=== PATIENT | male | born 1990 | race Hispanic/Latino ===

== ENCOUNTER 2022-05-12 15:02 | Inpatient (IN) | payer OTHER, SELFPAY ==
[~2022-05-12 15:02] MED LIST: Iopamidol-370 76% 500 ML 1 ML ONE
[2022-05-12] MEDS ORDERED: Ketorolac Tromethamine 30 MG/ML VIAL ONE (18:56)
[2022-05-12] MEDS ORDERED: Clindamycin/D5W 900 mg/50 ml Premix Bag ONE (18:56)
[2022-05-12] MEDS ORDERED: Ondansetron PF 4 MG/2 ML Vial ONE (18:56)
[2022-05-12 19:12] LABS: Hemoglobin 13.9 g/dL (14.0-18.0); Mean Corpuscular HGB CONC 34.1 g/dL (32.0-36.0); Mean Corpuscular Hemoglobin 30.3 pg (27.0-31.0); Mean Corpuscular Volume 88.8 fl (78.0-98.0); Mean Platelet Volume 8.4 fL (7.4-10.4); Platelet Count 171 10x3/uL (130-400); RBC Distribution Width 11.7 % (11.5-14.5)
[2022-05-12] MEDS ORDERED: Lidocaine 1% w/Epinephrine 1:100K 20 ML VIAL ONE (19:21)
[2022-05-12 19:31] LABS: ALT (SGPT) 49 U/L (8-55); AST (SGOT) 35 U/L (5-34); Albumin 3.9 g/dL (3.5-5.0); Alkaline Phosphatase 64 U/L (40-110); Anion Gap 17 mmol/L (10-20); BUN (Urea Nitrogen) 15 mg/dL (8.9-20.6); Bilirubin, Total 2.1 mg/dL (0.2-1.2); Calc. Creatinine Clearance 0 mL/min (70-130); Calcium 8.5 mg/dL (7.8-10.44); Carbon Dioxide 22 mmol/L (22-29); Chloride 96 mmol/L (98-107); Estimated GFR 76; Globulin 2.8 g/dL (2.4-3.5); Glucose 140 mg/dL (70-105); Potassium 3.8 mmol/L (3.5-5.1); Protein, Total 6.7 g/dL (6.0-8.3); Sodium 131 mmol/L (136-145)
[2022-05-12 19:32] LABS: Band 41 % (5-11); MDiff Complete? YES; Metamyelocyte 8 % (0-0); Monocytes 1 % (0-10); Neutrophil 49 % (42-75); Platelet Morphology Comment Appears Adequate; RBC Morphology Normal; Reflex for Review?? YES; Vacuoles SLIGHT
[2022-05-12] MEDS ORDERED: Vancomycin 1 GM/200 ML (FROZEN) BAG ONE (21:11)
[2022-05-12] MEDS ORDERED: Cefepime 2 GM VIAL ONE (21:11)
[2022-05-12 22:51] LABS: Lactic Acid 5.4 mmol/L (0.5-2.2)
[2022-05-12] MEDS ORDERED: Acetaminophen 650 MG Suppository PR PRN (23:23)
[2022-05-12] MEDS ORDERED: Ondansetron PF 4 MG/2 ML Vial IVP PRN (23:23)
[2022-05-12] MEDS ORDERED: Ondansetron ODT 4 MG TAB PO PRN (23:23)
[2022-05-13 01:26] VITALS: BMI 43.3
[2022-05-13 01:43] LABS: SARS-CoV-2 NAA Rapid Test Not Detected (NotDetected)
[2022-05-13] MEDS: Sodium Chloride 0.9% 1,000 ML IV SCH ×3 (01:57→18:18)
[2022-05-13 02:52] LABS: Hemoglobin 12.2 g/dL (14.0-18.0); Mean Corpuscular HGB CONC 34.1 g/dL (32.0-36.0); Mean Corpuscular Hemoglobin 30.5 pg (27.0-31.0); Mean Corpuscular Volume 89.5 fl (78.0-98.0); Mean Platelet Volume 8.5 fL (7.4-10.4); Platelet Count 151 10x3/uL (130-400); RBC Distribution Width 11.7 % (11.5-14.5); Red Blood Cell (RBC) Count 3.98 mill/uL (4.70-6.10); White Blood Cell (WBC) Count 17.7 10x3/uL (4.8-10.8)
[2022-05-13 03:08] LABS: Lactic Acid 2.4 mmol/L (0.5-2.2)
[2022-05-13 03:11] LABS: Band 31 % (5-11); Hypochromia SLIGHT = 6-15 cells (100X) (0-5/hpf); Lymphocytes 2 % (21-51); MDiff Complete? YES; Metamyelocyte 1 % (0-0); Monocytes 10 % (0-10); Neutrophil 55 % (42-75); Platelet Morphology Comment Appears Adequate; Reactive Lymphocytes 1 % (0-10)
[2022-05-13] MEDS ORDERED: Clindamycin/D5W 900 mg/50 ml Premix Bag ONE ×2 (03:15→12:08)
[2022-05-13] MEDS: Clindamycin/D5W 900 MG in Premix Bag 1 BAG IVPB SCH ×3 (03:22→20:04)
[2022-05-13 04:06] LABS: Chloride 104 mmol/L (98-107); Potassium 4.3 mmol/L (3.5-5.1); Sodium 134 mmol/L (136-145)
[2022-05-13 04:07] LABS: Calcium 7.3 mg/dL (7.8-10.44); Glucose 111 mg/dL (70-105)
[2022-05-13 04:09] LABS: Anion Gap 14 mmol/L (10-20); Carbon Dioxide 20 mmol/L (22-29)
[2022-05-13 04:10] LABS: Calc. Creatinine Clearance 217 mL/min (70-130); Estimated GFR 101
[2022-05-13 04:11] LABS: BUN (Urea Nitrogen) 13 mg/dL (8.9-20.6)
[2022-05-13] MEDS: Vancomycin 1.5 GRAM/300 ML BAG 1.5 GM in Premix Bag 1 BAG IVPB SCH ×2 (06:08→16:16)
[2022-05-13 07:18] LABS: Lactic Acid 1.6 mmol/L (0.5-2.2)
[2022-05-13 07:40] LABS: ALT (SGPT) 42 U/L (8-55); AST (SGOT) 31 U/L (5-34); Albumin 3.1 g/dL (3.5-5.0); Alkaline Phosphatase 49 U/L (40-110); Bilirubin, Total 1.7 mg/dL (0.2-1.2); Protein, Total 5.4 g/dL (6.0-8.3)
[2022-05-13] MEDS ORDERED: Acetaminophen 325 MG TAB ONE (09:35)
[2022-05-13] MEDS ORDERED: Cefepime 2 GM VIAL ONE (09:35)
[2022-05-13] MEDS: Acetaminophen 325 MG TAB PO PRN ×2 (09:39→20:05)
[2022-05-13] MEDS: Cefepime 2 GM in Sodium Chloride 0.9% 100 ML IVPB SCH ×2 (09:48→21:52)
[2022-05-14] MEDS: Vancomycin 1.5 GRAM/300 ML BAG 1.5 GM in Premix Bag 1 BAG IVPB SCH ×3 (00:46→16:21)
[2022-05-14] MEDS: Sodium Chloride 0.9% 1,000 ML IV SCH ×3 (00:48→22:18)
[2022-05-14] MEDS: Clindamycin/D5W 900 MG in Premix Bag 1 BAG IVPB SCH ×3 (03:40→18:40)
[2022-05-14 07:58] LABS: Vancomycin, Trough 18.2 ug/mL
[2022-05-14] MEDS: Cefepime 2 GM in Sodium Chloride 0.9% 100 ML IVPB SCH ×2 (09:25→22:16)
[2022-05-14 09:26] LABS: Bacteria/HPF None Seen HPF (None Seen); Bilirubin Negative (Negative); Blood, Urine Negative (Negative); CAUTI Indications for Culture Fever or rigors; Clarity Clear (Clear); Glucose, Urine (Dipstick) Normal (Negative); Ketone, Urine Negative (Negative); Leukocyte Negative Leu/uL (Negative); Nitrite Negative (Negative); Protein, Urine (Dipstick) Negative (Neg-Trace); RBC/HPF 0-3 HPF (0-3); Specific Gravity, Urine 1.016 (1.002-1.036); Squamous Epithelial None Seen HPF (0-3); Urobilinogen Normal mg/dL (Less than 2); WBC/HPF 0-3 HPF (0-3)
[2022-05-14 09:28] LABS: Urine Culture Reflex No No
[2022-05-14] MEDS: Acetaminophen 325 MG TAB PO PRN ×2 (09:28→15:24)
[2022-05-14] MEDS ORDERED: cloNIDine 0.1 MG TAB PO SCH (21:15)
[2022-05-15] MEDS: Clindamycin/D5W 900 MG in Premix Bag 1 BAG IVPB SCH ×2 (03:09→11:32)
[2022-05-15] MEDS ORDERED: Vancomycin 1.5 GRAM/300 ML BAG 1.5 GM in Premix Bag 1 BAG IVPB SCH (04:00)
[2022-05-15 04:24] LABS: Lactic Acid 0.9 mmol/L (0.5-2.2)
[2022-05-15 04:26] LABS: Anion Gap 16 mmol/L (10-20); BUN (Urea Nitrogen) 8 mg/dL (8.9-20.6); Calc. Creatinine Clearance 238 mL/min (70-130); Calcium 8.3 mg/dL (7.8-10.44); Carbon Dioxide 21 mmol/L (22-29); Chloride 105 mmol/L (98-107); Estimated GFR 113; Glucose 109 mg/dL (70-105); Sodium 139 mmol/L (136-145)
[2022-05-15 04:28] LABS: Band 31 % (5-11); Eosinophils 1 % (0-10); Hemoglobin 11.7 g/dL (14.0-18.0); Hypochromia SLIGHT = 6-15 cells (100X) (0-5/hpf); Lymphocytes 5 % (21-51); MDiff Complete? YES; Mean Corpuscular Hemoglobin 30.4 pg (27.0-31.0); Mean Corpuscular Volume 86.8 fl (78.0-98.0); Mean Platelet Volume 9.3 fL (7.4-10.4); Monocytes 11 % (0-10); Neutrophil 52 % (42-75); Platelet Count 150 10x3/uL (130-400); Platelet Morphology Comment Appears Adequate; RBC Distribution Width 11.5 % (11.5-14.5); Red Blood Cell (RBC) Count 3.85 mill/uL (4.70-6.10); White Blood Cell (WBC) Count 17.4 10x3/uL (4.8-10.8)
[2022-05-15] MEDS: Vancomycin 1.5 GRAM/300 ML BAG 1.5 GM in Premix Bag 1 BAG IVPB SCH (04:41)
[2022-05-15] MEDS: Cefepime 2 GM in Sodium Chloride 0.9% 100 ML IVPB SCH (08:58)
[2022-05-15] MEDS: Sodium Chloride 0.9% 1,000 ML IV SCH (11:58)
[2022-05-15] MEDS: Potassium Chloride 20 MEQ TAB PO SCH ×2 (13:23→18:03)
[2022-05-15] MEDS: Ampicillin/Sulbactam 3 GM in Sodium Chloride 0.9% 100 ML IVPB SCH (18:03)
[2022-05-16] MEDS: Ampicillin/Sulbactam 3 GM in Sodium Chloride 0.9% 100 ML IVPB SCH ×3 (02:12→11:14)
[2022-05-16 04:27] LABS: ALT (SGPT) 56 U/L (8-55); AST (SGOT) 44 U/L (5-34); Alkaline Phosphatase 109 U/L (40-110); Anion Gap 14 mmol/L (10-20); BUN (Urea Nitrogen) 10 mg/dL (8.9-20.6); Bilirubin, Total 0.7 mg/dL (0.2-1.2); Calc. Creatinine Clearance 217 mL/min (70-130); Calcium 8.5 mg/dL (7.8-10.44); Carbon Dioxide 22 mmol/L (22-29); Chloride 106 mmol/L (98-107); Estimated GFR 122; Globulin 2.9 g/dL (2.4-3.5); Glucose 96 mg/dL (70-105); Potassium 3.5 mmol/L (3.5-5.1); Protein, Total 5.9 g/dL (6.0-8.3); Sodium 138 mmol/L (136-145)
[2022-05-16 04:42] LABS: Band 8 % (5-11); Eosinophils 5 % (0-10); Hemoglobin 11.9 g/dL (14.0-18.0); Lymphocytes 18 % (21-51); MDiff Complete? YES; Mean Corpuscular Hemoglobin 30.5 pg (27.0-31.0); Mean Corpuscular Volume 87.1 fl (78.0-98.0); Mean Platelet Volume 9.1 fL (7.4-10.4); Metamyelocyte 2 % (0-0); Monocytes 10 % (0-10); Myelocyte 1 % (0-0); Neutrophil 56 % (42-75); Platelet Count 168 10x3/uL (130-400); Platelet Morphology Comment Appears Adequate; RBC Distribution Width 11.6 % (11.5-14.5); RBC Morphology M; White Blood Cell (WBC) Count 16.2 10x3/uL (4.8-10.8)
[2022-05-16 11:17] VITALS: BP 154/87; TEMP 97.8
== END 2022-05-16 13:33 | disposition home or self-care (01) | DRG 872 ==
LOC: ERS 15:02 → ERHOLD 22:13 → 2NO 05-13 12:31
PROVIDERS: ADMIT Student in an Organized Health Care Education/Training Program; ATTEND Internal Medicine
PROC: 3E03329 Introduction of Other Anti-infective into Peripheral Vein, Percutaneous Approach (ICD-10-PCS; principal; 2022-05-12)
PROC: 0J990ZZ Drainage of Buttock Subcutaneous Tissue and Fascia, Open Approach (ICD-10-PCS; 2022-05-12)
DX: A41.9 Sepsis, unspecified organism (principal); L05.01 Pilonidal cyst with abscess; Z68.41 Body mass index [BMI] 40.0-44.9, adult; E87.20 Acidosis, unspecified; E87.1 Hypo-osmolality and hyponatremia; E66.01 Morbid (severe) obesity due to excess calories; Z20.822 Contact with and (suspected) exposure to COVID-19; R65.20 Severe sepsis without septic shock; I95.9 Hypotension, unspecified
CPT/HCPCS: 10080; 36415; 72193; 80048; 80053; 80076; 80202; 81001; 83605; 85025; 85060; 87040; 87076; 87149; 96361; 96365; 96367; 96375; 97139; J0295; J0692; J1650; J1885; J2405; J3370; J3370-JW; J3490; J7050; Q0162; Q9967; U0002